=== PATIENT | female | born 1945 | race Caucasian/White ===

== ENCOUNTER 2018-03-19 04:44 | Inpatient (IN) ==
[2018-03-13 13:24] LABS: Appearance,Urine CLEAR; Bilirubin,Urine NEG (NEG); Color,Urine STRAW; Glucose,Urine (UA) NEGATIVE (NEG); Leukocyte Esterase,Urine NEG /uL (NEG); Protein,Urine NEG (NEG); Specific Gravity,Urine 1.009 (1.000-1.035); Urine Blood NEG mg/dL (<0.03); Urobilinogen,Urine NEG (NEG)
[2018-03-13 14:16] LABS: Basophils # (Auto) 0 K/mcL (0.0-0.3); Basophils % (Auto) 0.2 % (0.0-2.0); Eosinophils # (Auto) 0.1 K/mcL (0.0-0.7); Granulocytes % (Auto) 69.1 % (38.0-78.0); Lymphocytes # (Auto) 1.4 K/mcL (1.5-4.8); Lymphocytes % (Auto) 22.7 % (15.5-49.0); Mean Cell Volume 93.9 fL (80.0-100.0); Mean Corpuscular HGB Conc 33.4 g/dL (31.0-36.0); Mean Corpuscular Hemoglobin 31.4 pg (26.0-34.0); Monocytes # (Auto) 0.4 K/mcL (0.1-0.9); Platelet Count 233 K/mcL (140-440); RBC 4.65 M/mcL (4.00-5.20); Red Cell Distribution Width 12.6 % (11.5-14.5)
[2018-03-13 14:29] LABS: Blood Urea Nitrogen 11 mg/dl (8-23)
[2018-03-19] MEDS ORDERED: ceFAZolin 1 GM VIAL IV SCH (07:00)
[2018-03-19] MEDS ORDERED: CELECOXIB 200 MG CAPSULE PO SCH (07:00)
[2018-03-19] MEDS ORDERED: oxyCODONE 10 MG TAB.ER.12H PO SCH (07:00)
[2018-03-19] MEDS ORDERED: PREGABALIN 75 MG CAPSULE PO SCH (07:00)
[2018-03-19] MEDS ORDERED: MIDAZOLAM 5 MG/5 ML VIAL IV ONE (07:30)
[2018-03-19] MEDS ORDERED: DEXAMETHASONE 10 MG/ML VIAL IV ONE (07:30)
[2018-03-19] MEDS ORDERED: LIDOCAINE HCL/PF 100 MG/5 ML SYRINGE IV ONE (07:30)
[2018-03-19] MEDS ORDERED: SUCCINYLCHOLINE 20 MG/ML ML IV ONE (07:30)
[2018-03-19] MEDS ORDERED: ONDANSETRON 4 MG/2 ML VIAL IV ONE (07:30)
[2018-03-19] MEDS ORDERED: TRANEXAMIC ACID 1,000 MG/10 ML VIAL IV ONE (07:30)
[2018-03-19] MEDS ORDERED: ePHEDrine 50 MG/ML AMPUL IV ONE (07:30)
[2018-03-19] MEDS ORDERED: PROPOFOL 200 MG/20 ML VIAL IV ONE (07:30)
[2018-03-19] MEDS ORDERED: fentaNYL 100 MCG/2 ML VIAL IV ONE (07:30)
[2018-03-19] MEDS ORDERED: PHENYLEPHRINE 10 MG/ML VIAL IV ONE (07:30)
--- NOTE | 2018-03-19 09:03 | Brief Operative Note ---
Date of procedure: 03/19/18 Pre-op diagnosis: Right shoulder severe OA Post-op diagnosis: same Procedure: Right total shoulder arthroplasty bicep tenodesis Grafts/Implants: Yes (Depuy CAP 40x15, 40 anchor peg) Anesthesia: GLMA Findings: severe arthritis Complications: none Surgeon: Fili Medina Training Representative: Nabeel Tan Estimated blood loss (cc): 30 Specimens Removed/Pathology: none sent Condition: stable Disposition: PACU
[2018-03-19] MEDS ORDERED: BISACODYL 10 MG SUPP.RECT PR PRN (09:04)
[2018-03-19] MEDS ORDERED: ONDANSETRON 4 MG/2 ML VIAL IV PRN ×2 (09:04→09:28)
[2018-03-19] MEDS ORDERED: MAGNESIUM HYDROXIDE 30 ML ORAL.SUSP PO PRN (09:04)
[2018-03-19] MEDS ORDERED: BENZOCAINE/MENTHOL 1 LOZENGE PO PRN (09:04)
[2018-03-19] MEDS ORDERED: FLEETS ADULT ENEMA PR PRN (09:04)
[2018-03-19] MEDS ORDERED: TRANEXAMIC ACID 1,000 MG/10 ML VIAL IV SCH (09:04)
[2018-03-19] MEDS ORDERED: POLYETHYLENE GLYCOL 3350 17 GM PACKET PO PRN (09:04)
[2018-03-19] MEDS ORDERED: KETOROLAC 15 MG/ML VIAL IV PRN (09:04)
[2018-03-19] MEDS ORDERED: POLYVINYL ALCOHOL OPHTH DROPS 15ML BOTTLE OU PRN (09:08)
[2018-03-19] MEDS ORDERED: NALOXONE HCL 0.4 MG/ML VIAL IV PRN (09:28)
[2018-03-19] MEDS ORDERED: HYDROmorphone 2 MG/ML VIAL IV PRN (09:28)
[2018-03-19] MEDS ORDERED: ePHEDrine 50 MG/ML AMPUL IV PRN (09:28)
[2018-03-19] MEDS ORDERED: diphenhydrAMINE 50 MG/ML VIAL IV PRN (09:28)
[2018-03-19] MEDS ORDERED: FLUMAZENIL 0.1 MG/ML ML IV PRN (09:28)
[2018-03-19] MEDS ORDERED: IPRATROPIUM/ALBUTEROL 3 ML AMPUL.NEB NEB PRN (09:28)
[2018-03-19] MEDS ORDERED: ATROPINE SULFATE 0.4 MG/ML VIAL IV PRN (09:28)
[2018-03-19] MEDS ORDERED: METHOCARBAMOL 1,000 MG/10 ML VIAL IV PRN (09:28)
[2018-03-19] MEDS ORDERED: fentaNYL 100 MCG/2 ML VIAL IV PRN (09:28)
[2018-03-19] MEDS ORDERED: ACETAMINOPHEN 800 MG/80 ML BOTTLE IV ONE (09:28)
[2018-03-19] MEDS ORDERED: METOPROLOL TARTRATE 5 MG/5 ML VIAL IV PRN (09:28)
[2018-03-19] MEDS ORDERED: MEPERIDINE 25 MG/ML SYRINGE IV PRN (09:28)
[2018-03-19] MEDS ORDERED: BUPIVACAINE W/EPI 0.5% 50 ML VIAL IJ ONE (09:29)
--- NOTE | 2018-03-19 09:59 | XRay Report ---
CLINICAL INFORMATION: Postsurgical follow-up TECHNIQUE: AP internal and external rotation views. Axillary view COMPARISON: None. FINDINGS: Status post right shoulder arthroplasty. Prosthetic humeral head is in anatomic position. There is postsurgical soft tissue air. There are skin otis overlying the right shoulder. IMPRESSION: Status post right shoulder arthroplasty Interpreted and Authenticated by: Ismael Prather 03/19/18
--- NOTE | 2018-03-19 10:23 | Operative Note ---
DATE OF OPERATION: 03/19/2018 PREOPERATIVE DIAGNOSIS: Right shoulder, severe osteoarthritis. POSTOPERATIVE DIAGNOSIS: Right shoulder, severe osteoarthritis. PROCEDURE PERFORMED: 1. Right total shoulder arthroplasty using a DePuy Cap 40 x 15 and an Dittmer Peg Glenoid size 40. 2. Biceps tenodesis. SURGEON: Fili Medina M.D. INSIDE SALES CONSULTANT: Pa Tan PA-C. ANESTHESIA: General. DRAINS: None. SPECIMENS: None. COMPLICATIONS: None. BLOOD LOSS: 150 mL. POSTOPERATIVE CONDITION: Stable. INDICATIONS FOR SURGERY: This is a 72-year-old female who has had progressive worsening right shoulder pain that correlated with x-rays showing significant nearly tcee-yk-yoej osteoarthritis. FINDINGS AT SURGERY: Intact rotator cuff. She had large osteophytes off the humeral head. Post-procedure showed good component position and stability. PROCEDURE IN DETAIL: The patient had been seen preoperatively and informed consent had been obtained after discussion of risks and benefits of surgery. Risks including, but not limited to, bleeding, possibly requiring transfusion; infection, possibly requiring implant removal and prolonged IV antibiotics; injury to nerves, blood vessels, and other surrounding structures; anesthetic risks; incomplete or no resolution of symptoms; stiffness; pain; possibility of needing further revision surgery. She understood these risks and wished to proceed. Correct operative site was marked and then patient was taken to the operating room. General anesthesia induced. She was carefully positioned in the beachchair position and pressure points carefully padded. Right shoulder and upper extremity were then carefully prepped and draped in normal sterile fashion, and a time-out was performed verifying patient name, operative site, and plan. Ioban was placed in the axilla, and a second prep was done, and then Ioban was placed over the rest of the skin. Standard deltopectoral incision was made with scalpel through skin and subcutaneous tissue. Hemostasis was obtained with Bovie cautery. Careful blunt dissection was taken down onto the cephalic vein. Irrisept was irrigated. We then dissected medial to the cephalic vein and bluntly dissected down through the interval and then developed the subdeltoid space with blunt finger dissection. Butt deltoid retractor was placed. The lateral edge of the conjoined tendon was identified and blue handle retractor placed underneath. The biceps was palpated exiting from underneath the pec, and we unroofed this with a 15 blade scalpel. Curved Peters scissors were used to amputate it off the superior glenoid. A curved osteotome was then used to perform a lesser tuberosity osteotomy, and a traction stitch was placed around the fragment. We then dislocated the humeral head out anteriorly. We released capsule around the inferior neck. Curved osteotome was used to remove inferior osteophytes. We then exposed the glenoid using a Fukuda retractor to sublux the head posteriorly. We removed labrum circumferentially with Bovie. We then released capsule circumferentially inferiorly, carefully retracting soft tissues away from the bone as we kept the Bovie right on bone. Once we had adequate exposure, we placed a guide pin central in the glenoid. She had a very small glenoid. We went ahead and reamed with a 40 reamer and then a central peg was drilled. The peripheral peg drill guide was placed. We drilled our three peripheral pegs. We trialed the 40 anchor peg trial which seated fully, so we went ahead and opened the definitive implant. We irrigated the joint with Irrisept. DBX was placed in the flutes of the central peg while cement was mixed. We then injected the cement into the three peripheral holes, pressurizing as much as possible and then impacted the implant. This was held absolutely still until cement had fully hardened. We then irrigated Irrisept again, after a minute we pulse lavaged. We then exposed the proximal humerus. A cap guide was placed and a guide pin passed central in the head and through the far cortex. We then used the 40 x 15 cap reamer and reamed down until we had reached bone with the entire reamer. We then went ahead and removed the peripheral excess bone and then used the trial to verify full seating. We then opened a 40 x 15 implant. We cruciate-punched over the guide pin and then removed the guide pin and irrigated with Irrisept, after a minute we pulse lavaged with saline and then impacted the implant until it was fully seated. We checked our stability, and it subluxed posteriorly 50%. I then made two holes in the bicipital groove and using a #2 FiberWire repaired the subscapularis with the [id number] around the lesser tuberosity fragment in anatomic position. We closed the rotator interval with several interrupted [id number] FiberWires. I then used my Ethibond traction stitch, and with a free needle, passed this through the biceps tendon and then out through bone on the lateral proximal humerus and tied this to tenodese the biceps. We amputated the proximal stump of the biceps and then did another Irrisept irrigation, after a minute pulse lavaged, and then #1 Vicryl was used to run the deltopectoral interval. A final Irrisept irrigation done, and after a minute final pulse lavage, and 2-0 Monocryl for subcutaneous and otis for skin. Xeroform and sterile dressing were applied. Arm was placed in an abductor immobilizer and patient was awakened, extubated, and transferred to recovery in stable condition. [email or web address] Job ID: [id number] Doc ID: [id number] Fili Medina MD
[2018-03-19] MEDS: 0.9 % SODIUM CHLORIDE 1,000 ML IV SCH ×2 (10:28→20:21)
[2018-03-19] MEDS: 0.9 % SODIUM CHLORIDE 10 ML SYRINGE IV SCH ×2 (15:10→20:52)
[2018-03-19] MEDS: ceFAZolin 1 GM VIAL IV SCH ×2 (15:24→22:29)
[2018-03-19] MEDS: oxyCODONE/APAP 5/325MG TABLET PO PRN ×2 (19:30→22:39)
[2018-03-19] MEDS: DOCUSATE SODIUM 100 MG CAPSULE PO SCH (20:51)
[2018-03-19] MEDS: CALCIUM W/VIT D3 500 MG TABLET PO SCH (20:51)
[2018-03-19] MEDS ORDERED: SENNOSIDES 1 TABLET PO SCH (21:00)
[2018-03-20] MEDS: oxyCODONE/APAP 5/325MG TABLET PO PRN ×2 (03:35→08:00)
[2018-03-20] MEDS: 0.9 % SODIUM CHLORIDE 1,000 ML IV SCH (04:14)
[2018-03-20] MEDS: 0.9 % SODIUM CHLORIDE 10 ML SYRINGE IV SCH (04:15)
--- NOTE | 2018-03-20 07:30 | Discharge Summary ---
Ortho Discharge - TSA - Patient Instructions Diet: Regular Diet Activity: non weight bearing (LUE) Total Shoulder Protocol: Leave immobilizer in place except for bathing and ROM. Abduction pillow. Continue to wear sling until seen by physician. Codman Pendulum : These exercises use momentum produced by your body to move your shoulder joint. Bend your knees and shift your weight to your front leg, then back, allowing your arm to swing in the same directions. Using the same technique, alternately shift your weight between your right and left legs, allowing your arm to swing from side to side. These exercises are also performed in counterclockwise and clockwise circular motions. Typically these exercises are performed several times per day, for a set number repetitions or minutes, such as 20 times in a row or 5 minutes at a time. Dressing Care: May shower in 2 days, Aquacel Ag - leave on for 5 days - Follow Up Plan Follow Up Appointments: Nabeel Tan PA-C [Physician Clinical Administrative Coordinator] - 04/03/18 11:20 am Disposition: Home, Self-Care Prognosis: Good Rehab Potential: Good - Orders For Discharge Additional Discharge Orders: Physical Therapy at Discharge - TSA Location: None Selected Brace/Splint Location: None Selected
--- NOTE | 2018-03-20 07:52 | Orthopedic Progress Note ---
Subjective Patient information: Note initiated : 03/20/18 at 7:51 am Service Date, if different from initiated Date: [] Patient: Leti Burgos 72 y/o F admitted on 03/19/18 for Right Total Shoulder Arthroplasty with Bicep . Chief Complaint: [] Principal diagnosis: s/p R total shoulder Interval history: no complaints Objective Vital signs: Vital Signs Temp Pulse Resp BP Pulse Ox 03/20/18 07:05 76 03/20/18 03:39 98.4 F 76 16 105/64 92 03/19/18 23:46 98.3 F 86 16 116/69 93 03/19/18 20:00 98.7 F 88 16 100/61 91 03/19/18 17:17 97.2 F 75 100/57 92 03/19/18 13:27 76 102/56 91 03/19/18 13:12 76 100/63 91 03/19/18 12:42 81 103/64 91 03/19/18 12:27 93 H 95/61 90 03/19/18 12:12 81 107/67 90 03/19/18 11:57 75 104/66 95 03/19/18 11:42 83 103/66 90 03/19/18 10:42 78 113/71 95 03/19/18 10:00 97.5 F 88 13 143/72 99 03/19/18 09:54 97.5 F 78 12 143/63 100 03/19/18 09:49 83 17 150/62 98 03/19/18 09:39 81 12 138/66 99 03/19/18 09:34 96 H 13 159/89 99 03/19/18 09:29 96 H 12 159/89 99 03/19/18 09:24 97.2 F 76 12 114/58 100 Intake and Output 03/19/18 03/20/18 03/20/18 21:59 05:59 13:59 Intake Total 1590 / 1590 350 / 350 Output Total 400 / 400 1150 / 1150 Balance 1190 / 1190 -800 / -800 Intake: IV 1000 / 1000 Sodium Chloride 0.9% 1,000 ml @ 1000 / 1000 100 mls/hr IV .Q10H [facility] [place] Rx#: [id number] Oral 590 / 590 350 / 350 Output: Void Amount 400 / 400 1150 / 1150 Other: Urine Appearance Clear Clear Urine Color Bright Yellow Pale Urine Odor Normal # Voids 1 1 Weight 130 lb 12.8 oz Intake & Output: Intake & Output 03/19/18 03/20/18 03/20/18 21:59 05:59 13:59 Intake Total 1590 / 1590 350 / 350 Output Total 400 / 400 1150 / 1150 Balance 1190 / 1190 -800 / -800 Weight 130 lb 12.8 oz Intake: IV 1000 / 1000 Sodium Chloride 0.9% 1,000 ml @ 1000 / 1000 100 mls/hr IV .Q10H [facility] Rx#: [id number] Oral 590 / 590 350 / 350 Output: Void Amount 400 / 400 1150 / 1150 Other: Urine Appearance Clear Clear Urine Color Bright Yellow Pale Urine Odor Normal # Voids 1 1 Dressing: Yes clean, Yes dry, Yes intact Neurological exam IM: Yes alert, Yes oriented X3, Yes neurovascular intact - Labs CBC & BMP: 03/13/18 11:00 03/13/18 11:00 Labs: 03/13/18 11:00 Hgb 14.6 Hct 43.6 Assessment and Plan (1) Status post total shoulder arthroplasty POD#1-stable -d/c home Status: Acute
[2018-03-20] MEDS: CALCIUM W/VIT D3 500 MG TABLET PO SCH (07:57)
[2018-03-20] MEDS: DOCUSATE SODIUM 100 MG CAPSULE PO SCH (07:57)
[2018-03-20] MEDS ORDERED: DICLOFENAC 75 MG PO SCH (09:00)
[2018-03-20] MEDS ORDERED: VITAMIN D3 1,000 UNIT TABLET PO SCH (09:00)
[2018-03-20] MEDS ORDERED: ASPIRIN 81 MG TAB.CHEW PO SCH (09:00)
== END 2018-03-20 09:05 | disposition home or self-care (01) | DRG 483 ==
LOC: MEDSUR 04:44
PROVIDERS: ADMIT Orthopaedic Surgery; ATTEND Orthopaedic Surgery